=== PATIENT | male | born 1955 | race Caucasian/White ===

== ENCOUNTER 2022-08-09 07:58 | Outpatient (CLI) | payer MEDICARE ==
[2022-08-09 08:51] LABS: #Eosinphils 0.2 10x3/uL (0.0-0.5); #Monocytes 0.7 10x3/uL (0.0-1.1); #Neutrophils 3.7 10x3/uL (1.5-8.4); %Basophils 0.5 % (0.0-2.0); %Eosinophils 2.5 % (0.0-6.0); %Lymphocytes 24.1 % (18.0-47.0); %Monocytes 11.1 % (0.0-10.0); %Neutrophils 61.6 % (40.0-75.0); Hemoglobin 13.5 g/dL (13.5-17.5); Mean Corpuscular HGB CONC 35.5 g/dL (32.0-36.0); Mean Corpuscular Volume 92.9 fl (81.2-95.1); Mean Platelet Volume 11.9 fl (7.4-10.4); Platelet Count 142 10x3/uL (150-450); RBC Distribution Width 13.3 % (11.5-14.5); Red Blood Cell (RBC) Count 4.09 10x6/uL (4.32-5.72); White Blood Cell (WBC) Count 6.1 10x3/uL (3.5-10.5)
[2022-08-09 09:19] LABS: ALT (SGPT) 12 U/L (8-55); AST (SGOT) 21 U/L (5-34); Albumin 4.2 g/dL (3.4-4.8); Alkaline Phosphatase 53 U/L (40-110); Anion Gap 14 mmol/L (10-20); BUN (Urea Nitrogen) 16 mg/dL (8.4-25.7); Bilirubin, Total 0.7 mg/dL (0.2-1.2); Calc. Creatinine Clearance 0 mL/min (70-130); Carbon Dioxide 24 mmol/L (23-31); Chloride 106 mmol/L (98-107); Estimated GFR 88; Globulin 2.4 g/dL (2.4-3.5); Glucose 107 mg/dL (80-115); Potassium 4.9 mmol/L (3.5-5.1); Protein, Total 6.6 g/dL (5.8-8.1); Sodium 139 mmol/L (136-145)
== END 2022-08-09 07:59 | disposition home or self-care (01) ==
LOC: LABBT 07:58
PROVIDERS: ATTEND Surgery
DX: Z01.818 Encounter for other preprocedural examination (principal); K40.90 Unilateral inguinal hernia, without obstruction or gangrene, not specified as recurrent
CPT/HCPCS: 80053; 85025; 93005; 93010

== ENCOUNTER → 2022-08-12 | Day surgery (SDC) | payer MEDICARE ==
[2022-08-11 09:57] VITALS: BMI 25.7
[~2022-08-12] MED LIST: Bupivacaine/Epinephrine 0.25% 30 ML VIAL ONE; CEFAZOLIN 2 GM VIAL ONE; Famotidine/PF 20 mg/2ml Vial ONE; Fentanyl 250 MCG/5 ML VIAL ONE; HYDROcodone/Acetaminophen 5/325 mg Tablet ONE; Ketorolac Tromethamine 30 MG/ML VIAL ONE; Lidocaine 1% PF 5 ML VIAL ONE; Midazolam HCl 2 mg/2 ml Vial ONE; Ondansetron PF 4 MG/2 ML Vial ONE; PROPOFOL 200 MG/20 ML VIAL ONE; Sodium Chloride 0.9% 100 ML ONE; ePHEDrine 50 MG/ML VIAL ONE
== END | disposition home or self-care (01) ==
LOC: SDC 06:10
PROVIDERS: ATTEND Surgery
PROC: 0YU60JZ Supplement Left Inguinal Region with Synthetic Substitute, Open Approach (ICD-10-PCS; principal; 2022-08-12)
DX: K40.90 Unilateral inguinal hernia, without obstruction or gangrene, not specified as recurrent (principal); I10 Essential (primary) hypertension; F17.210 Nicotine dependence, cigarettes, uncomplicated; F10.10 Alcohol abuse, uncomplicated; K21.9 Gastro-esophageal reflux disease without esophagitis; Z79.82 Long term (current) use of aspirin; Z79.899 Other long term (current) drug therapy
CPT/HCPCS: 49505; C1781; J1885; J2250; J2405; J2704; J3010; J3490; S0028

== ENCOUNTER 2023-02-18 23:37 | Emergency (ER) | payer BC, MEDICARE, OTHER ==
[2023-02-19] MEDS ORDERED: Ketorolac Tromethamine 30 MG/ML VIAL ONE (00:05)
[2023-02-19 00:35] LABS: #Eosinphils 0.3 thou/uL (0.0-0.7); #Monocytes 0.6 thou/uL (0.11-0.59); #Neutrophils 3.3 thou/uL (1.40-6.50); %Basophils 0.5 % (0.0-1.0); %Eosinophils 3.4 % (0.0-10.0); %Monocytes 7.6 % (0.0-10.0); %Neutrophils 39.3 % (42.0-75.0); Hematocrit 38.8 % (42.0-52.0); Hemoglobin 13.5 g/dL (14.0-18.0); Mean Corpuscular HGB CONC 34.8 g/dL (32.0-36.0); Mean Corpuscular Hemoglobin 33.5 pg (27.0-31.0); Mean Corpuscular Volume 96.3 fl (78.0-98.0); Mean Platelet Volume 11.7 fL (7.4-10.4); Platelet Count 135 10x3/uL (130-400); RBC Distribution Width 13.6 % (11.5-14.5); Red Blood Cell (RBC) Count 4.03 mill/uL (4.70-6.10); White Blood Cell (WBC) Count 8.5 10x3/uL (4.8-10.8)
[2023-02-19] MEDS ORDERED: Morphine 4 MG/ML VIAL ONE (01:57)
[2023-02-19] MEDS ORDERED: Diazepam 10 MG/2 ML SYRINGE ONE (01:57)
[2023-02-19 01:59] LABS: ALT (SGPT) 15 U/L (8-55); AST (SGOT) 20 U/L (5-34); Albumin 4.2 g/dL (3.4-4.8); Alkaline Phosphatase 50 U/L (40-110); Anion Gap 15 mmol/L (10-20); BUN (Urea Nitrogen) 14 mg/dL (8.4-25.7); Bilirubin, Total 0.3 mg/dL (0.2-1.2); Calc. Creatinine Clearance 0 mL/min (70-130); Calcium 8.5 mg/dL (7.8-10.44); Carbon Dioxide 19 mmol/L (23-31); Chloride 104 mmol/L (98-107); Estimated GFR 95; Globulin 2.3 g/dL (2.4-3.5); Glucose 96 mg/dL (80-115); Protein, Total 6.5 g/dL (5.8-8.1); Sodium 134 mmol/L (136-145)
[2023-02-19] MEDS ORDERED: Dexamethasone 10 MG/ML VIAL ONE (02:46)
[2023-02-19] MEDS ORDERED: LORazepam 2 MG/ML SYR.(CARPUJECT) ONE (02:58)
[2023-02-19 05:37] LABS: Bilirubin Negative (Negative); Blood, Urine Negative (Negative); Clarity Clear (Clear); Glucose, Urine (Dipstick) Normal (Negative); Ketone, Urine Negative (Negative); Leukocyte Negative Leu/uL (Negative); Nitrite Negative (Negative); Protein, Urine (Dipstick) Negative (Neg-Trace); Specific Gravity, Urine 1.008 (1.002-1.036); Urobilinogen Normal mg/dL (Less than 2)
[2023-02-19 05:38] LABS: Bacteria/HPF None Seen HPF (None Seen); CAUTI Indications for Culture Pelvic or flank pain; RBC/HPF 0-3 HPF (0-3); Squamous Epithelial None Seen HPF (0-3); WBC/HPF None Seen HPF (0-3)
[2023-02-19 06:24] LABS: Urine Culture Reflex No No
== END 2023-02-19 07:44 | disposition home or self-care (01) ==
LOC: ERS 23:37
DX: M54.9 Dorsalgia, unspecified (principal); R33.9 Retention of urine, unspecified; I10 Essential (primary) hypertension; E78.5 Hyperlipidemia, unspecified; F17.210 Nicotine dependence, cigarettes, uncomplicated
CPT/HCPCS: 51702; 72128; 72131; 72146; 72148; 80053; 81001; 82550; 85025; 85652; 96374; 96375; 99284; J2060; J1100; J1885; J2270; J3360

== ENCOUNTER 2023-02-19 10:09 | Emergency (ER) | payer MEDICARE ==
[2023-02-19] MEDS ORDERED: Morphine 4 MG/ML VIAL ONE (11:01)
[2023-02-19] MEDS ORDERED: Ketorolac Tromethamine 30 MG/ML VIAL ONE (11:01)
[2023-02-19] MEDS ORDERED: Lidocaine 4% Cream 5 GM TUBE w/ Tegaderm ONE (11:16)
== END 2023-02-19 11:54 | disposition home or self-care (01) ==
LOC: ERS 10:09
DX: R33.9 Retention of urine, unspecified (principal); N32.89 Other specified disorders of bladder; I10 Essential (primary) hypertension; E78.5 Hyperlipidemia, unspecified; F17.210 Nicotine dependence, cigarettes, uncomplicated
CPT/HCPCS: 51700; 96372; J1885; J2270

== ENCOUNTER 2023-02-27 11:51 | Outpatient (CLI) | payer MEDICARE | END 2023-02-27 11:52 | disposition home or self-care (01) | LOC: LABBT 11:51 | PROVIDERS: ATTEND Neurological Surgery | DX: Z01.810 Encounter for preprocedural cardiovascular examination (principal); M51.16 Intervertebral disc disorders with radiculopathy, lumbar region | CPT/HCPCS: 93005; 93010 ==

== ENCOUNTER 2023-03-01 07:25 | Day surgery (SDC) | payer MEDICARE ==
[2023-02-27 12:37] VITALS: BMI 25.0
[2023-03-01] MEDS ORDERED: Acetaminophen 500 MG TAB ONE (07:52)
[2023-03-01] MEDS ORDERED: EPINEPHrine 1 MG/ML AMP ONE (08:01)
[2023-03-01] MEDS ORDERED: Bupivacaine PF 0.5% 30 ML VIAL ONE (08:01)
[2023-03-01] MEDS ORDERED: Thrombin 5000 UNITS/5 ML VIAL ONE (08:01)
[2023-03-01] MEDS ORDERED: fentaNYL PF 100 MCG/2 ML SYRINGE ONE (08:33)
[2023-03-01] MEDS ORDERED: HYDROmorphone 0.5 MG/0.5 ML SYRINGE ONE (08:33)
[2023-03-01] MEDS ORDERED: CEFAZOLIN 2 GM VIAL ONE ×2 (08:34→14:00)
[2023-03-01] MEDS ORDERED: Sodium Chloride 0.9% 100 ML ONE ×2 (08:34→14:00)
[2023-03-01] MEDS ORDERED: Magnesium 5 GM/10 ML VIAL ONE (09:24)
[2023-03-01] MEDS ORDERED: Glycopyrrolate 0.2 MG/ML 5 ML SYRINGE ONE (09:30)
[2023-03-01] MEDS ORDERED: Dexamethasone 20 MG/5 ML VIAL ONE (09:30)
[2023-03-01] MEDS ORDERED: Rocuronium Bromide 10 MG/ML (10ML VIAL) ONE (09:30)
[2023-03-01] MEDS ORDERED: NEOSTIGMINE 3 MG/3 ML SYR 3 MG/3 ML SYRINGE ONE (09:30)
[2023-03-01] MEDS ORDERED: PROPOFOL 200 MG/20 ML VIAL ONE (09:30)
[2023-03-01] MEDS ORDERED: Ondansetron PF 4 MG/2 ML Vial ONE (09:30)
[2023-03-01] MEDS ORDERED: Tamsulosin HCl 0.4 MG CAP ONE (11:01)
[2023-03-01] MEDS ORDERED: fentaNYL 50 mcg/mL 1 mL Vial ONE ×2 (11:20→11:31)
== END 2023-03-01 14:53 | disposition home or self-care (01) ==
LOC: SDC 07:25
PROVIDERS: ATTEND Neurological Surgery
PROC: 0SB20ZZ Excision of Lumbar Vertebral Disc, Open Approach (ICD-10-PCS; principal; 2023-03-01)
DX: M48.061 Spinal stenosis, lumbar region without neurogenic claudication (principal); M54.16 Radiculopathy, lumbar region; I10 Essential (primary) hypertension; K21.9 Gastro-esophageal reflux disease without esophagitis; E78.5 Hyperlipidemia, unspecified; Z79.899 Other long term (current) drug therapy; Z79.82 Long term (current) use of aspirin; Z96.652 Presence of left artificial knee joint
CPT/HCPCS: 63047; J3010; J0171; J1100; J1170; J2405; J2704; J3475; J3490; S0020

== ENCOUNTER 2023-04-04 14:38 | Outpatient (CLI) | payer MEDICARE | END 2023-04-04 14:39 | disposition home or self-care (01) | LOC: BICRAD 14:38 | PROVIDERS: ATTEND Physician Assistant | DX: M54.50 Low back pain, unspecified (principal); M47.816 Spondylosis without myelopathy or radiculopathy, lumbar region; I70.0 Atherosclerosis of aorta | CPT/HCPCS: 72100 ==

== ENCOUNTER 2023-04-10 14:25 | Outpatient (CLI) | payer MEDICARE | END 2023-04-10 14:26 | disposition home or self-care (01) | LOC: BICRAD 14:25 | PROVIDERS: ATTEND Neurological Surgery | DX: M47.26 Other spondylosis with radiculopathy, lumbar region (principal); M51.16 Intervertebral disc disorders with radiculopathy, lumbar region | CPT/HCPCS: 72110 ==

== ENCOUNTER 2023-05-02 10:22 | Outpatient (CLI) | payer MEDICARE | END 2023-05-02 10:23 | disposition home or self-care (01) | LOC: BICRAD 10:22 | PROVIDERS: ATTEND Neurological Surgery | DX: M25.552 Pain in left hip (principal); M16.12 Unilateral primary osteoarthritis, left hip ==

== ENCOUNTER 2025-03-31 05:12 | Emergency (ER) | payer OTHER ==
[2025-03-31] MEDS ORDERED: Ketorolac Tromethamine 30 MG (1 mL) VIAL ONE (05:41)
[2025-03-31 07:44] LABS: Hematocrit 33.2 % (42.0-52.0); Hemoglobin 11.7 g/dL (14.0-18.0); Mean Corpuscular Hemoglobin 32.9 pg (27.0-31.0); Mean Corpuscular Volume 93.3 fL (78.0-98.0); Platelet Count 89 10x3/uL (130-400); Red Blood Cell (RBC) Count 3.56 mill/uL (4.70-6.10); White Blood Cell (WBC) Count 6.12 10x3/uL (4.8-10.8)
[2025-03-31 07:54] LABS: ALT (SGPT) 44 U/L (Less than 45); AST (SGOT) 38 U/L (11-34); Albumin 3.0 g/dL (3.1-4.5); Alkaline Phosphatase 60 U/L (40-110); Anion Gap 12 mmol/L (10-20); BUN (Urea Nitrogen) 16 mg/dL (8.4-25.7); Bilirubin, Total 0.3 mg/dL (0.3-1.2); Calc. Creatinine Clearance 0 mL/min (70-130); Calcium 8.0 mg/dL (7.8-10.44); Carbon Dioxide 23 mmol/L (23-31); Chloride 108 mmol/L (98-107); Globulin 2.2 g/dL (2.4-3.5); Glucose 140 mg/dL (80-115); Potassium 3.8 mmol/L (3.5-5.1); Sodium 139 mmol/L (136-145)
[2025-03-31 09:01] LABS: #Basophils Less than 0.03 10x3/uL (0.0-0.2); #Eosinophils Less than 0.03 10x3/uL (0.0-0.7); #Monocytes 0.40 10x3/uL (0.11-0.59); #Neutrophils 5.12 10x3/uL (1.40-6.50); %Basophils 0.2 % (0.0-1.0); %Eosinophils 0.0 % (0.0-10.0); %Lymphocytes 9.0 % (21.0-51.0); %Monocytes 6.5 % (0.0-10.0); %Neutrophils 83.6 % (42.0-75.0)
[2025-03-31 09:03] LABS: Anisocytosis SLIGHT = 6-15 cells HPF (0-5); Burr Cells SLIGHT = 2-5 cells HPF (0-1); Platelet Adequacy Comment Platelets Decreased
== END 2025-03-31 09:15 | disposition home or self-care (01) ==
LOC: MERGE 05:12 → ERS 05:12
DX: M47.896 Other spondylosis, lumbar region (principal); I10 Essential (primary) hypertension; F17.210 Nicotine dependence, cigarettes, uncomplicated
CPT/HCPCS: 72131; 80053; 82010; 85025; J1885; J2270; 96374; 96375